=== PATIENT | female | born 1970 | race Caucasian/White ===

== ENCOUNTER 2018-03-29 03:36 | Emergency (ER) | payer OTHER, MEDICAID ==
[~2018-03-29] VITALS: Ht 157.5 cm; Wt 90.7 kg
[2018-03-29 03:42] VITALS: BP 152/85
== END 2018-03-29 04:17 | disposition home or self-care (01) ==
LOC: ER 03:43
DX: S60.562A Insect bite (nonvenomous) of left hand, initial encounter (principal); F31.9 Bipolar disorder, unspecified; W57.XXXA Bitten or stung by nonvenomous insect and other nonvenomous arthropods, initial encounter; Y93.89 Activity, other specified; Y92.89 Other specified places as the place of occurrence of the external cause; Y99.8 Other external cause status
CPT/HCPCS: 99282; A4606; Z7610